=== PATIENT | female | born 1955 | race Caucasian/White ===

== ENCOUNTER 2018-03-10 21:28 | Inpatient (IN) | payer OTHER ==
[2018-03-10 21:28] VITALS: BMI 25.1
[2018-03-10 22:12] LABS: BASO % 0.4 % (0.0-2.0); EOS # 0.1 K/uL (0.0-0.7); EOS % 0.8 % (0.0-4.0); HEMOGLOBIN 12.8 g/dL (11.0-16.0); LYMPH % 28.6 % (20.0-40.0); MEAN CELL VOLUME 67.7 fL (81.0-99.0); MEAN CORPUSCULAR HEMOGLOBIN 21.7 pg (27.0-31.0); MEAN CORPUSCULAR HGB CONC 32.1 g/dL (33.0-37.0); MEAN PLATELET VOLUME 8.8 fL (7.2-11.7); MONO # 0.9 K/uL (0.0-0.8); MONO % 8.5 % (0.0-10.0); NEUT # 6.4 K/uL (1.8-7.0); NEUT % 61.7 % (50.0-75.0); NRBC % 0.1 % (0.0-2.0); RBC 5.87 Mil/uL (3.80-5.20); RED CELL DISTRIBUTION WIDTH 15.1 % (11.5-14.5); WHITE BLOOD COUNT 10.4 K/uL (4.8-10.8)
[2018-03-10] MEDS ORDERED: Morphine 4 MG/ML VIAL ONE ×2 (22:12→23:47)
[2018-03-10 22:23] LABS: ALB/GLOB RATIO 1.2 (1.0-2.1); ALBUMIN 4.3 g/dL (3.5-5.0); ALT/SGPT 70 U/L (9-52); AST/SGOT 47 U/L (14-36); BLOOD UREA NITROGEN 11 mg/dL (7-17); CALCIUM 8.6 mg/dl (8.6-10.4); GFR NON-AFRICAN AMERICAN > 60; LIPASE 118 U/L (23-300)
[2018-03-10 22:35] LABS: B-TYPE NATRIURETIC PEPTIDE 141 pg/mL (0-900)
[2018-03-10 22:36] LABS: INR 0.9; PARTIAL THROMBOPLASTIN TIME 30 SECONDS (21-34)
[2018-03-10] MEDS ORDERED: Iohexol 300 100 ML IJ ONE (22:49)
[2018-03-10 22:57] LABS: D DIMER < 200 ng/mlDDU (0-243)
[2018-03-11 00:16] LABS: SQUAMOUS EPITHIAL 4 /hpf (0-5); URINE BILIRUBIN NEGATIVE (NEGATIVE); URINE BLOOD NEGATIVE (NEGATIVE); URINE CLARITY Clear (Clear); URINE COLOR Straw (YELLOW); URINE GLUCOSE (UA) 1+ mg/dL (Normal); URINE LEUKOCYTE ESTERASE NEG Leu/uL (Negative); URINE PROTEIN 1+ mg/dL (NEGATIVE); URINE UROBILINOGEN NORMAL mg/dL (0.2-1.0)
[2018-03-11] MEDS ORDERED: Ciprofloxacin 400mg/200ml D5W 400 MG/200 ML BAG IV STA (00:19)
--- NOTE | 2018-03-11 00:22 | C.PDOC ---
History Of Present Illness 63-year-old female presents to the ED for evaluation of periumbilical abdominal pain and diarrhea which began today. Patient denies fever, chills, eating new foods, or sick contacts. Time Seen by Provider: 03/10/18 21:50 Chief Complaint (Nursing): Abdominal Pain History Per: Patient History/Exam Limitations: no limitations Onset/Duration Of Symptoms: Hrs Current Symptoms Are (Timing): Still Present Location Of Pain/Discomfort: Periumbilical Radiation Of Pain To:: None Quality Of Discomfort: "Pain" Associated Symptoms: Diarrhea. denies: Fever, Chills Last Bowel Movement: Today Additional History Per: Patient Past Medical History Reviewed: Historical Data, Nursing Documentation, Vital Signs Vital Signs: Last Vital Signs Temp 97.9 F 03/11/18 15:00 Pulse 80 03/11/18 15:00 Resp 20 03/11/18 15:00 BP 142/68 03/11/18 15:00 Pulse Ox 100 03/11/18 15:00 - Medical History PMH: Anemia, HTN, Hypercholesterolemia Denies: Chronic Kidney Disease Surgical History: No Surg Hx Denies: Pacemaker - [facility] Procedures COLONOSCOPY (03/15/05) ENDOSC POLYPECTOMY OF LG INTEST (02/14/14) ESOPHAGOGASTRODUODENOSCOPY [EGD] W/CLOSED BIOPSY (03/15/05) LAPAROSCOP LYSIS-PERITONEAL ADHES (09/02/02) OTH LAPAROSCOP LOCAL EXCIS/DESTRUCT OVARY (09/02/02) SUBTOT ABD HYSTERECTOMY (09/02/02) Family History: States: Unknown Family Hx - Social History Hx Alcohol Use: No Hx Substance Use: No - Immunization History Hx Tetanus Toxoid Vaccination: Yes Hx Influenza Vaccination: No Hx Pneumococcal Vaccination: No Review Of Systems Constitutional: Negative for: Fever, Chills Gastrointestinal: Positive for: Abdominal Pain (periumbilical ), Diarrhea Physical Exam - Physical Exam Appears: Non-toxic, Other (in moderate distress ) Skin: Normal Color, Warm, Dry Head: Atraumatic, Normacephalic Eye(s): bilateral: Normal Inspection Oral Mucosa: Moist Neck: Supple Chest: Symmetrical, No Deformity, No Tenderness Cardiovascular: Rhythm Regular, No Murmur Respiratory: Normal Breath Sounds, No Rales, No Rhonchi, No Wheezing Gastrointestinal/Abdominal: Soft, Tenderness (periumbilical ), No Guarding, No Rebound, No Other (Madrigal's sign, McBurney's point tenderness ) Extremity: Normal ROM, Capillary Refill (less than 2 seconds ) Neurological/Psych: Oriented x3, Normal Speech, Normal Cognition ED Course And Treatment - Laboratory Results Result Diagrams: 03/11/18 19:25 03/11/18 19:30 O2 Sat by Pulse Oximetry: 100 (on RA) Pulse Ox Interpretation: Normal - CT Scan/US CT A/P Other Rad Studies (CT/US): Read By Radiologist, Radiology Report Reviewed CT/US Interpretation: IMPRESSION: Findings consistent with appendicitis. No abscess. No pneumoperitoneum. Progress Note: Bloodwork, urinalysis, CT A/P , EKG ordered and reviewed. Cipro IV, Flagyl IV, Morphine IVP, and Zofran IVP given. Disposition Doctor Will See Patient In The: Hospital Counseled Patient/Family Regarding: Studies Performed, Diagnosis - Disposition Disposition: HOSPITALIZED Disposition Time: 15:00 Condition: GOOD - Clinical Impression Clinical Impression: Appendicitis - Scribe Statement The provider has reviewed the documentation as recorded by the Scribe (Génesis Avalos) Provider Attestation: All medical record entries made by the Scribe were at my direction and personally dictated by me. I have reviewed the chart and agree that the record accurately reflects my personal performance of the history, physical exam, medical decision making, and the department course for this patient. I have also personally directed, reviewed, and agree with the discharge instructions and disposition.
[2018-03-11] MEDS ORDERED: Ciprofloxacin 400mg/200ml D5W 400 MG/200 ML BAG IVPB ONE ×2 (00:28→09:32)
--- NOTE | 2018-03-11 00:28 | C.PDOC ---
Time Seen by Provider: 03/10/18 21:50 Chief Complaint (Nursing): Abdominal Pain Past Medical History Vital Signs: Last Vital Signs Temp 97.7 F 03/10/18 21:39 Pulse 60 03/10/18 21:39 Resp 18 03/10/18 21:39 BP 218/84 H 03/10/18 21:39 Pulse Ox 100 03/10/18 21:39 - Medical History PMH: Anemia, HTN, Hypercholesterolemia Denies: Chronic Kidney Disease Surgical History: Denies: Pacemaker - [facility] Procedures COLONOSCOPY (03/15/05) ENDOSC POLYPECTOMY OF LG INTEST (02/14/14) ESOPHAGOGASTRODUODENOSCOPY [EGD] W/CLOSED BIOPSY (03/15/05) LAPAROSCOP LYSIS-PERITONEAL ADHES (09/02/02) OTH LAPAROSCOP LOCAL EXCIS/DESTRUCT OVARY (09/02/02) SUBTOT ABD HYSTERECTOMY (09/02/02) Family History: States: Unknown Family Hx - Social History Hx Alcohol Use: No Hx Substance Use: No - Immunization History Hx Tetanus Toxoid Vaccination: Yes Hx Influenza Vaccination: No Hx Pneumococcal Vaccination: No ED Course And Treatment - Laboratory Results Result Diagrams: 03/10/18 22:07 03/10/18 22:07 Lab Interpretation: Normal (ua neg.) ECG: Interpreted By Me ECG Rhythm: Sinus Rhythm ECG Interpretation: Normal Rate From EC O2 Sat by Pulse Oximetry: 100 Pulse Ox Interpretation: Normal - Radiology CXR: Interpreted by Me CXR Interpretation: Yes: No Acute Disease - CT Scan/US abd/pelvis Other Rad Studies (CT/US): Interpreted By Me, Radiology Report Reviewed (+ acute AP) Reevaluation Time: 00:28 Reassessment Condition: Improved - Physician Consult Information Outcome Of Conversation: 0020: d/w PMD, jud Larios to admit. Prefers Dr. Franco or Dr. Nath for Surg Consult. 0020: d/w Surgical TobiasBenjy ayala ok to consult as above. Disposition Doctor Will See Patient In The: Hospital Counseled Patient/Family Regarding: Studies Performed, Diagnosis - Disposition Disposition: HOSPITALIZED Disposition Time: 00:30 Condition: GOOD - Clinical Impression Clinical Impression: Appendicitis
[2018-03-11] MEDS ORDERED: metroNIDAZOLE IV 500 mg/100 ml 500 MG/100 ML BAG IV SCH (00:30)
[2018-03-11] MEDS ORDERED: Lactated Ringer's 1,000 ML IV SCH (01:15)
--- NOTE | 2018-03-11 01:15 | CP.PCM.CON ---
History of Present Illness - History of Present Illness History of Present Illness: General Surgery consult note for Dr. Franco Consulted for: acute appendicitis Patient is a 63F with PMH of HTN, HLD, and DM who presents with 1 day of upper abdominal pain, nausea, and vomiting. patient states that symptoms started 03/10 morning and pain is a cramping sensation that is constant, nothing alleviates or aggravates. patient has had several episodes of nausea and vomitings yellow emesis, with no bile or blood. Patient also admits to one episode of yellowish, non-bloody diarrhea at the time of onset. Denies any dysuria or hematuria but admits urinary frequency lately, denies fevers, chills, or any other symptoms. Patient denies any sick contacts or prior episodes. Patient takes 81mg ASA a day PMH: HTN, HLD, DM PSH: ALL: PCN social: denies any smoking, ETOH, or drug history Review of Systems - Review of Systems All systems: reviewed and no additional remarkable complaints except (as per HPI ) Past Patient History - Infectious Disease Hx of Infectious Diseases: None - Past Medical History & Family History Past Medical History?: Yes Past Family History: Reviewed and not pertinent - Past Social History Smoking Status: Never Smoked Alcohol: None Drugs: Denies - CARDIAC Hx Hypercholesterolemia: Yes Hx Hypertension: Yes Hx Pacemaker: No - PULMONARY Hx Respiratory Disorders: No - NEUROLOGICAL Hx Neurological Disorder: Yes Hx Dizziness: Yes Hx Vertigo: Yes - HEENT Hx HEENT Problems: No Other/Comment: WEARS GLASSES - RENAL Hx Chronic Kidney Disease: No - ENDOCRINE/METABOLIC Hx Endocrine Disorders: Yes Hx Diabetes Mellitus Type 2: Yes - HEMATOLOGICAL/ONCOLOGICAL Hx Anemia: Yes - INTEGUMENTARY Hx Dermatological Problems: No - MUSCULOSKELETAL/RHEUMATOLOGICAL Hx Musculoskeletal Disorders: No Hx Falls: No (DENIES) - GASTROINTESTINAL Hx Gastrointestinal Disorders: No - GENITOURINARY/GYNECOLOGICAL Hx Genitourinary Disorders: No - PSYCHIATRIC Hx Substance Use: No - SURGICAL HISTORY Hx Surgeries: Yes Hx Section: Yes (2x) - ANESTHESIA Hx Anesthesia: Yes Hx Anesthesia Reactions: No Hx Malignant Hyperthermia: No Meds Allergies/Adverse Reactions: Allergies Allergy/AdvReac Type Severity Reaction Status Date / Time Penicillins Allergy Verified 12/28/15 10:33 - Medications Medications: Current Medications Ciprofloxacin (Cipro 400mg/200ml Dsw) 400 mg in 200 mls @ 133.333 mls/hr IV STAT STA PRN Reason: Protocol Stop: 03/11/18 01:48 Last Admin: 03/11/18 00:33 Dose: 133.333 mls/hr Metronidazole (Flagyl) 500 mg in 100 mls @ 100 mls/hr IV STAT PANCHITO PRN Reason: Protocol Ciprofloxacin (Cipro 400mg/200ml Dsw) 400 mg in 200 mls @ 133 mls/hr IVPB Q12H PANCHITO PRN Reason: Protocol Metronidazole (Flagyl) 500 mg in 100 mls @ 100 mls/hr IVPB Q8H PANCHITO PRN Reason: Protocol Lactated Ringer's (Lactated Ringer's) 1,000 mls @ 125 mls/hr IV .Q8H PANCHITO Ondansetron HCl (Zofran Inj) 4 mg IVP Q6H PRN PRN Reason: Nausea/Vomiting Physical Exam - Constitutional Appears: Well, Non-toxic, No Acute Distress - Head Exam Head Exam: ATRAUMATIC, NORMOCEPHALIC - Eye Exam Eye Exam: Normal appearance. absent: Conjunctival injection, Scleral icterus - ENT Exam ENT Exam: Mucous Membranes Moist, Normal Oropharynx - Respiratory Exam Respiratory Exam: NORMAL BREATHING PATTERN. absent: Accessory Muscle Use, Respiratory Distress - Cardiovascular Exam Cardiovascular Exam: RRR - GI/Abdominal Exam GI & Abdominal Exam: Soft, Tenderness (RLQ>RUQ>epigastrium). absent: Distended , Rebound Additional comments: no rebound tenderness, negative psoas sign, negative rovsing's sign - Extremities Exam Extremities exam: Positive for: pedal pulses present. Negative for: calf tenderness, pedal edema - Back Exam Back exam: absent: CVA tenderness (L), CVA tenderness (R) - Neurological Exam Neurological exam: Alert, Oriented x3 - Psychiatric Exam Psychiatric exam: Normal Affect, Normal Mood - Skin Skin Exam: Diaphoretic, Intact, Normal Color, Warm Results - Vital Signs Recent Vital Signs: Last Vital Signs Temp 97.7 F 03/10/18 21:39 Pulse 60 03/10/18 21:39 Resp 18 03/10/18 21:39 BP 218/84 H 03/10/18 21:39 Pulse Ox 100 03/11/18 00:31 - Labs Result Diagrams: 03/11/18 07:44 03/11/18 07:44 Labs: Laboratory Results - last 24 hr 03/10/18 03/10/18 03/10/18 22:07 22:07 22:07 WBC 10.4 RBC 5.87 H Hgb 12.8 Hct 39.8 MCV 67.7 L MCH 21.7 L MCHC 32.1 L RDW 15.1 H Plt Count 179 MPV 8.8 Neut % (Auto) 61.7 Lymph % (Auto) 28.6 [place] % (Auto) 8.5 Eos % (Auto) 0.8 Baso % (Auto) 0.4 Neut # (Auto) 6.4 Lymph # (Auto) 3.0 [place] # (Auto) 0.9 H Eos # (Auto) 0.1 Baso # (Auto) 0.0 PT 10.0 INR 0.9 APTT 30 D-Dimer, Quantitative < 200 Sodium 134 Potassium 3.9 Chloride 94 L Carbon Dioxide 27 Anion Gap 17 BUN 11 Creatinine 0.6 L Est GFR ( Amer) > 60 Est GFR (Non-Af Amer) > 60 Random Glucose 155 H Lactic Acid Calcium 8.6 Total Bilirubin 0.4 AST 47 H D ALT 70 H D Alkaline Phosphatase 126 D Troponin I < 0.0120 NT-Pro-B Natriuret Pep 141 Total Protein 7.8 Albumin 4.3 Globulin 3.5 Albumin/Globulin Ratio 1.2 Lipase 118 Urine Color Urine Clarity Urine pH Ur Specific [place] Urine Protein Urine Glucose (UA) Urine Ketones Urine Blood Urine Nitrate Urine Bilirubin Urine Urobilinogen Ur Leukocyte Esterase Urine WBC (Auto) Urine RBC (Auto) Ur Squamous Epith Cells 03/10/18 03/11/18 22:14 00:07 WBC RBC Hgb Hct MCV MCH MCHC RDW Plt Count MPV Neut % (Auto) Lymph % (Auto) [place] % (Auto) Eos % (Auto) Baso % (Auto) Neut # (Auto) Lymph # (Auto) [place] # (Auto) Eos # (Auto) Baso # (Auto) PT INR APTT D-Dimer, Quantitative Sodium Potassium Chloride Carbon Dioxide Anion Gap BUN Creatinine Est GFR ( Amer) Est GFR (Non-Af Amer) Random Glucose Lactic Acid 1.6 Calcium Total Bilirubin AST ALT Alkaline Phosphatase Troponin I NT-Pro-B Natriuret Pep Total Protein Albumin Globulin Albumin/Globulin Ratio Lipase Urine Color Straw Urine Clarity Clear Urine pH 7.0 Ur Specific [place] 1.033 H Urine Protein 1+ H Urine Glucose (UA) 1+ Urine Ketones Trace Urine Blood Negative Urine Nitrate Negative Urine Bilirubin Negative Urine Urobilinogen Normal Ur Leukocyte Esterase Neg Urine WBC (Auto) 8 H Urine RBC (Auto) 1 Ur Squamous Epith Cells 4 - Imaging and Cardiology CT scan - abdomen Status: Image reviewed by me, Report reviewed by me Assessment & Plan - Assessment and Plan (Free Text) Assessment: 63F with acute appendicitis Plan: OR in the AM for laparoscopic appendectomy NPO IVF IVF cipro/flagyl PRN pain and nausea medication Incentive spirometer, SCD's Discussed with Dr. Joan Burleson, PGY2
[2018-03-11] MEDS ORDERED: Morphine 4 MG/ML VIAL IVP PRN (01:18)
[2018-03-11] MEDS ORDERED: metroNIDAZOLE IV 500 mg/100 ml 500 MG/100 ML BAG IV STA (01:29)
[2018-03-11] MEDS: Lactated Ringer's 1,000 ML IV SCH ×3 (02:20→18:06)
[2018-03-11 07:57] LABS: BASO % 0.1 % (0.0-2.0); EOS % 0.3 % (0.0-4.0); HEMOGLOBIN 11.6 g/dL (11.0-16.0); LYMPH # 1.9 K/uL (1.0-4.3); LYMPH % 21.4 % (20.0-40.0); MEAN CORPUSCULAR HGB CONC 32.4 g/dL (33.0-37.0); MEAN PLATELET VOLUME 9.1 fL (7.2-11.7); MONO % 11.7 % (0.0-10.0); NEUT % 66.5 % (50.0-75.0); RBC 5.26 Mil/uL (3.80-5.20)
[2018-03-11] MEDS: metroNIDAZOLE IV 500 mg/100 ml 500 MG/100 ML BAG IVPB SCH ×2 (08:00→16:16)
[2018-03-11 08:11] LABS: BLOOD UREA NITROGEN 10 mg/dL (7-17); GFR NON-AFRICAN AMERICAN > 60
--- NOTE | 2018-03-11 08:38 | RAD ---
Date of service: 03/11/2018 HISTORY: pre-op evaluation COMPARISON: Portable chest 12/28/2015. FINDINGS: LUNGS: No active pulmonary disease. PLEURA: No significant pleural effusion identified, no pneumothorax apparent. CARDIOVASCULAR: Borderline cardiomegaly. No pulmonary vascular congestion. OSSEOUS STRUCTURES: No significant abnormalities. VISUALIZED UPPER ABDOMEN: Elevated right hemidiaphragm of indeterminate etiology. OTHER FINDINGS: None. IMPRESSION: Borderline cardiomegaly reiterated with no pulmonary vascular congestion. Elevated hemidiaphragm identified in the interval of indeterminate etiology. No acute infiltrates bilaterally.
[2018-03-11] MEDS ORDERED: Clindamycin 600mg/50ml NS 600 MG/50 ML BAG IVPB ONE (09:32)
[2018-03-11] MEDS ORDERED: Midazolam 2 MG/2 ML VIAL ONE (09:35)
[2018-03-11] MEDS ORDERED: Propofol 10 mg/ml Inj (20 ML) ONE (09:35)
[2018-03-11] MEDS ORDERED: Succinylcholine Chloride 20 mg/ml Syr (5 ml) IV ONE (10:00)
[2018-03-11] MEDS ORDERED: Rocuronium 10 mg/ml (10 ml) ONE (10:00)
[2018-03-11] MEDS ORDERED: ePHEDrine 50 mg/ml Inj ONE (10:51)
--- NOTE | 2018-03-11 11:45 | CT ---
Date of service: 03/10/2018 PROCEDURE: CT Abdomen and Pelvis with contrast HISTORY: abd pain, elev BP, ? dissection/mesenteric COMPARISON: None. TECHNIQUE: Following oral and intravenous contrast administration, a CT examination of the abdomen and pelvis performed from the domes of the diaphragms to the symphysis pubis with reformatted datasets provided not only axial but also sagittal and coronal series. Contrast dose: Omnipaque 300, 100 cc Radiation dose: Total exam DLP = 320.23 mGy-cm. This CT exam was performed using one or more of the following dose reduction techniques: Automated exposure control, adjustment of the mA and/or kV according to patient size, and/or use of iterative reconstruction technique. FINDINGS: LOWER THORAX: Cardiomegaly. Limited bilateral basilar dependent atelectasis. No pleural or pericardial effusion appreciated. LIVER: Diminished attenuation is seen throughout the liver compatible with hepatic steatosis. No intrahepatic biliary duct dilatation or mass is identified. GALLBLADDER AND BILE DUCTS: Unremarkable. PANCREAS: Unremarkable. No gross lesion or ductal dilatation. SPLEEN: Unremarkable. ADRENALS: Unremarkable. No mass. KIDNEYS AND URETERS: Unremarkable. No hydronephrosis. No solid mass. VASCULATURE: Unremarkable. No aortic aneurysm. BOWEL: Unremarkable. No obstruction. No gross mural thickening. APPENDIX: Appendix is dilated with an appendicular is identified proximally and limited periappendiceal reaction compatible with appendicitis. No CT sign of rupture at this time. No abscess. PERITONEUM: Unremarkable. No free fluid. No free air. LYMPH NODES: Unremarkable. No enlarged lymph nodes. BLADDER: Unremarkable. REPRODUCTIVE: Unremarkable. BONES: No acute fracture. OTHER FINDINGS: None. IMPRESSION: Findings compatible with appendicitis. No CT sign of rupture. Concordant preliminary report from [facility], 03/11/2018.
[2018-03-11] MEDS: Ciprofloxacin 400mg/200ml D5W 400 MG/200 ML BAG IVPB SCH (13:27)
--- NOTE | 2018-03-11 13:27 | PCM.SURG1 ---
Surgeon's Initial Post Op Note - Surgeon's Notes Surgeon: Joan Licensed Embalmer Supervisor: Fito PGY4 Type of Anesthesia: General Endo Pre-Operative Diagnosis: Appendicitis Operative Findings: Acutely inflamed appendix. Serosal tear of colon Post-Operative Diagnosis: same Operation Performed: laparoscopic appendectomy with laparotomy and repair of serosal colon tear Specimen/Specimens Removed: appendix Estimated Blood Loss: EBL {In ML}: 200 Blood Products Given: N/A Drains Used: No Drains Post-Op Condition: Good Date of Surgery/Procedure: 03/11/18 Time of Surgery/Procedure: 13:27
[2018-03-11] MEDS: HYDROmorphone 0.5 mg/0.5 ml ISec IVP PRN ×2 (13:42→14:00)
[2018-03-11] MEDS ORDERED: Lactated Ringer's 1,000 ML IV ONE (14:05)
[2018-03-11 19:28] LABS: HEMOGLOBIN 10.9 g/dL (11.0-16.0); MEAN CELL VOLUME 67.8 fL (81.0-99.0); MEAN CORPUSCULAR HEMOGLOBIN 21.9 pg (27.0-31.0); MEAN CORPUSCULAR HGB CONC 32.4 g/dL (33.0-37.0); MEAN PLATELET VOLUME 8.4 fL (7.2-11.7); RBC 4.99 Mil/uL (3.80-5.20); RED CELL DISTRIBUTION WIDTH 15.1 % (11.5-14.5); WHITE BLOOD COUNT 9.5 K/uL (4.8-10.8)
[2018-03-11 19:54] LABS: IRON 16 ug/dL (37-170)
[2018-03-11 19:57] LABS: ALB/GLOB RATIO 1.3 (1.0-2.1); ALBUMIN 3.6 g/dL (3.5-5.0); ALT/SGPT 53 U/L (9-52); AST/SGOT 28 U/L (14-36); BLOOD UREA NITROGEN 5 mg/dL (7-17); CALCIUM 7.4 mg/dl (8.6-10.4); GFR NON-AFRICAN AMERICAN > 60
[2018-03-11 20:03] LABS: % IRON SATURATION 6 (20-55); TOTAL IRON BINDING CAPACITY 282 ug/dL (250-450)
[2018-03-12] MEDS: metroNIDAZOLE IV 500 mg/100 ml 500 MG/100 ML BAG IVPB SCH (00:04)
[2018-03-12] MEDS: Ciprofloxacin 400mg/200ml D5W 400 MG/200 ML BAG IVPB SCH (00:05)
--- NOTE | 2018-03-12 00:23 | OP ---
Copied To: Benito Franco Jr., MD Attending MD: Benito Franco Jr., MD PROCEDURE DATE: 03/11/2018 PREOPERATIVE DIAGNOSIS: Appendicitis. POSTOPERATIVE DIAGNOSIS: Appendicitis. PROCEDURES CARRIED OUT: 1. Laparoscopic appendectomy. 2. Laparotomy repair of serosal tear of colon. SURGEON: Benito Franco Jr., MD [employer] PIPES ASSEMBLER: ___merry__ ANESTHESIOLOGIST: Dr. Addison Pierce. ANESTHESIA: General anesthesia. INDICATIONS: The patient is a 63-year-old woman with abdominal pain, abnormal CAT scan, fecaliths in the middle of the appendix. OPERATIVE FINDINGS: The patient's findings are consistent with appendicitis. It was not particularly inflamed. The rest of the intraoperative findings were unremarkable; however on closing the abdomen, our final look showed that there was loop of bowel adhesed to the incision in the left lower quadrant where the other puncture site was made. Because of this, we attempted to check this, but I was unable to be satisfied if there is no bowel tear or etc laparoscopically. Because of this, we made an incision in the left lower quadrant to check it. At this point, there was a 2-mm serosal tear to the colon, but there was nofull thickness tear and was just a tear in the serosal surface of the colon. After this had been done, we then checked again for hemostasis, closed the abdominal incision, both incisions under direct vision and then closed the left lower quadrant incision, which we were difficult to anticipate it. Nonetheless after this had been closed and we were satisfied with the hemostasis, we irrigated out the wound and closed the skin. Blood loss of the procedure was 200 mL primarily due to ooze from the umbilical port. The rest of the intraoperative findings were unremarkable. OPERATION CARRIED OUT: Laparoscopic appendectomy and then laparotomy via left lower quadrant incision to inspect the sigmoid colon because there were numerous adhesions, and I was concerned that there has been some tear to the colon. It was found that there was a serosal tear about 2 mm in diameter. Benito Franco Jr., MD [facility]
[2018-03-12] MEDS: Lactated Ringer's 1,000 ML IV SCH ×3 (05:34→20:12)
[2018-03-12 07:16] LABS: HEMOGLOBIN 10.4 g/dL (11.0-16.0); MEAN CELL VOLUME 66.9 fL (81.0-99.0); MEAN CORPUSCULAR HEMOGLOBIN 21.3 pg (27.0-31.0); MEAN CORPUSCULAR HGB CONC 31.8 g/dL (33.0-37.0); RBC 4.88 Mil/uL (3.80-5.20); RED CELL DISTRIBUTION WIDTH 14.9 % (11.5-14.5); WHITE BLOOD COUNT 7.3 K/uL (4.8-10.8)
--- NOTE | 2018-03-12 07:45 | CP.PCM.PN ---
Subjective - Date & Time of Evaluation Date of Evaluation: 03/12/18 Time of Evaluation: 07:36 - Subjective Subjective: Surgery: Dr. Franco Pt seen and examined. Resting comfortably in bed. Pain controlled. Tolerating CLD. No N/V. No F/C. Objective - Vital Signs/Intake and Output Vital Signs (last 24 hours): Temp Pulse Resp BP Pulse Ox 99.1 F 82 20 125/67 100 03/12/18 05:05 03/12/18 05:05 03/12/18 05:05 03/12/18 05:05 03/12/18 05:05 Intake and Output: 03/12/18 03/12/18 06:59 18:59 Intake Total 1100 Output Total 1700 Balance -600 - Medications Medications: Current Medications Bisoprolol Fumarate (Zebeta) 5 mg PO DAILY PANCHITO Ondansetron HCl (Zofran Inj) 4 mg IVP Q6H PRN PRN Reason: Nausea/Vomiting Last Admin: 03/11/18 19:30 Dose: 4 mg Tamsulosin HCl (Flomax) 0.4 mg PO DAILY PANCHITO Last Admin: 03/11/18 17:21 Dose: 0.4 mg - Labs Labs: 03/12/18 07:09 03/11/18 19:30 PT 10.0 SECONDS (9.7-12.2) 03/10/18 22:07 INR 0.9 03/10/18 22:07 APTT 30 SECONDS (21-34) 03/10/18 22:07 - Constitutional Appears: Non-toxic, No Acute Distress - Head Exam Head Exam: ATRAUMATIC, NORMOCEPHALIC - Eye Exam Eye Exam: EOMI - ENT Exam ENT Exam: Mucous Membranes Moist - Neck Exam Neck Exam: Full ROM - Respiratory Exam Respiratory Exam: NORMAL BREATHING PATTERN. absent: Accessory Muscle Use, Respiratory Distress - GI/Abdominal Exam GI & Abdominal Exam: Soft, Tenderness (srinivasan-incisional ). absent: Distended, Firm, Guarding, Rigid, Rebound - Extremities Exam Extremities Exam: absent: Calf Tenderness, Pedal Edema - Neurological Exam Neurological Exam: Alert, Awake, Oriented x3 Assessment and Plan - Assessment and Plan (Free Text) Assessment: 63F w. appendicitis, s/p lap appy w. 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
[2018-03-12 07:54] LABS: BLOOD UREA NITROGEN 4 mg/dL (7-17); CALCIUM 7.6 mg/dl (8.6-10.4); GFR NON-AFRICAN AMERICAN > 60
[2018-03-12] MEDS: Enoxaparin 40 mg Syringe SC SCH (09:38)
[2018-03-12] MEDS: Oxycodone/Acetaminophen 5/325 mg Tab PO PRN ×2 (18:09→23:36)
--- NOTE | 2018-03-13 06:20 | CP.PCM.HP ---
History of Present Illness - History of Present Illness History of Present Illness: cc: abdominal pain HPI: Pt is a 63 yo [place] female who developed diarrhea and pain over the mid and srinivasan-umbilical areas 2 days prior to admission. Pt says she had loose watery stools and she took Imodium in an attempt to find relief. The diarrhea abated, but her pain continued until it localized at the RLQ. Pt also developed increasing nausea and escalation of the intensity of the abdom pain. Unable to withstand the pain, pt went to ER for evaluation where she was diagnosed with an acute appendicitis. I was called by the ER Attending at the time, and I asked that current Surgeon be consulted as this was turning into a surgical case. Appreciate prompt Surgical service response. Present on Admission - Present on Admission History of DVT/PE: No History of Uncontrolled Diabetes: Yes Urinary Catheter: No Decubitus Ulcer Present: No Review of Systems - Review of Systems Systems not reviewed;Unavailable: Acuity of Condition, Altered Mental Status - Constitutional Constitutional: Anorexia, Chills, Headache - EENT Eyes: absent: As Per HPI, Blind Spots, Blurred Vision, Change in Vision, Decreased Night Vision, Diplopia, Discharge, Dry Eye, Exophthalmos, Floaters, Irritation, Itchy Eyes, Loss of Peripheral Vision, Pain, Photophobia, Requires Corrective Lenses, Sees Flashes, Spots in Vision, Tunnel Vision, Other Visual Disturbances, Loss of Vision, Other Ears: absent: As Per HPI, Decreased Hearing, Ear Discharge, Ear Pain, Tinnitus, Abnormal Hearing, Disequilibrium, Dizziness, Other Nose/Mouth/Throat: absent: As Per HPI, Epistaxis, Nasal Congestion, Nasal Discharge, Nasal Obstruction, Nasal Trauma, Nose Pain, Post Nasal Drip, Sinus Pain, Sinus Pressure, Bleeding Gums, Change in Voice, Dental Pain, Dry Mouth, Dysphagia, Halitosis, Hoarsness, Lip Swelling, Mouth Lesions, Mouth Pain, Odynophagia, Sore Throat, Throat Swelling, Tongue Swelling, Facial Pain, Neck Pain, Neck Mass, Other - Breasts Breasts: absent: As Per HPI, Change in Shape, Mass, Pain, Nipple Discharge, Nipple Inversion, Skin Changes, Swelling, Other - Cardiovascular Cardiovascular: absent: As Per HPI, Acrocyanosis, Chest Pain, Chest Pain at Rest , Chest Pain with Activity, Claudication, Diaphoresis, Dyspnea, Dyspnea on Exertion, Edema, Irregular Heart Rhythm, Pain Radiating to Arm/Neck/Jaw, Leg Edema, Leg Ulcers, Lightheadedness, Orthopnea, Palpitations, Paroxysmal Nocturnal Dyspnea, Pedal Edema, Radiating Pain, Rapid Heart Rate, Slow Heart Rate, Syncope, Other - Respiratory Respiratory: Cough Past Patient History - Infectious Disease Hx of Infectious Diseases: None - Past Medical History & Family History Past Medical History?: Yes Past Family History: Reviewed and not pertinent - Past Social History Smoking Status: Never Smoked Alcohol: None Drugs: Denies - CARDIAC Hx Hypercholesterolemia: Yes Hx Hypertension: Yes Hx Pacemaker: No - PULMONARY Hx Respiratory Disorders: No - NEUROLOGICAL Hx Neurological Disorder: Yes Hx Dizziness: Yes Hx Vertigo: Yes - HEENT Hx HEENT Problems: No Other/Comment: WEARS GLASSES - RENAL Hx Chronic Kidney Disease: No - ENDOCRINE/METABOLIC Hx Endocrine Disorders: Yes Hx Diabetes Mellitus Type 2: Yes - HEMATOLOGICAL/ONCOLOGICAL Hx Anemia: Yes - INTEGUMENTARY Hx Dermatological Problems: No - MUSCULOSKELETAL/RHEUMATOLOGICAL Hx Musculoskeletal Disorders: No Hx Falls: No (DENIES) - GASTROINTESTINAL Hx Gastrointestinal Disorders: No - GENITOURINARY/GYNECOLOGICAL Hx Genitourinary Disorders: No - PSYCHIATRIC Hx Substance Use: No - SURGICAL HISTORY Hx Surgeries: Yes Hx Section: Yes (2x) - ANESTHESIA Hx Anesthesia: Yes Hx Anesthesia Reactions: No Hx Malignant Hyperthermia: No Meds Home Medications: Home Medication List Medication Instructions Recorded Confirmed Type Bisacodyl [Dulcolax] 10 mg OH ONCE sup 03/13/18 Rx Sennosides A and B [Senokot Tab] 8.6 mg PO BID 30 Days #60 tab 03/13/18 Rx oxyCODONE/Acetaminophen [Percocet 1 tab PO Q4H PRN #20 tab 03/13/18 Rx 5/325 mg Tab] Allergies/Adverse Reactions: Allergies Allergy/AdvReac Type Severity Reaction Status Date / Time Penicillins Allergy Verified 12/28/15 10:33 Physical Exam - Constitutional Appears: In Acute Distress Additional comments: from abdom pain - Head Exam Head Exam: ATRAUMATIC, NORMAL INSPECTION, NORMOCEPHALIC - Eye Exam Eye Exam: Normal appearance - ENT Exam ENT Exam: Normal Exam - Neck Exam Neck exam: Positive for: Normal Inspection - Respiratory Exam Respiratory Exam: NORMAL BREATHING PATTERN - Cardiovascular Exam Cardiovascular Exam: REGULAR RHYTHM - GI/Abdominal Exam GI & Abdominal Exam: Hypoactive Bowel Sounds - Rectal Exam Rectal Exam: NORMAL INSPECTION Additional comments: no perirrectal tenderness - Exam Exam: NORMAL INSPECTION External exam: NORMAL EXTERNAL EXAM - Back Exam Back exam: NORMAL INSPECTION - Neurological Exam Neurological exam: Normal Gait - Psychiatric Exam Psychiatric exam: Depressed, Normal Affect, Normal Mood - Skin Skin Exam: Warm Results - Vital Signs Recent Vital Signs: Last Vital Signs Temp 98.7 F 03/12/18 23:00 Pulse 68 03/12/18 23:00 Resp 20 03/12/18 23:00 BP 125/65 03/12/18 23:00 Pulse Ox 96 03/12/18 23:00 - Labs Result Diagrams: 03/12/18 07:09 03/12/18 07:09 Labs: Laboratory Results - last 24 hr 03/12/18 03/12/18 03/12/18 07:09 07:09 21:11 WBC 7.3 RBC 4.88 Hgb 10.4 L Hct 32.6 L MCV 66.9 L MCH 21.3 L MCHC 31.8 L RDW 14.9 H Plt Count 145 MPV 9.0 Sodium 131 L Potassium 3.6 Chloride 96 L Carbon Dioxide 24 Anion Gap 14 BUN 4 L Creatinine 0.6 L Est GFR ( Amer) > 60 Est GFR (Non-Af Amer) > 60 POC Glucose (mg/dL) 263 H Random Glucose 198 H Calcium 7.6 L Assessment & Plan (1) Appendicitis Assessment and Plan: for surgery. Service consulted Status: Acute (2) Diabetes Assessment and Plan: will hold off on starting insulin which uses of home for now until patient is post-op. Status: Chronic (3) Hyponatremia Assessment and Plan: probably Iatrogenic. will Monitor and is sodium decreases again, will switch IV fluids to normal saline. Status: Acute
--- NOTE | 2018-03-13 09:04 | RAD ---
Date of service: 03/12/2018 HISTORY: constipation/obstruction COMPARISON: CT abdomen pelvis 03/10/2018 FINDINGS: BOWEL: No bowel obstruction. Right colon stool retention. Interval faint hyperdensities the right lower quadrant just above the iliac crest compatible with interval surgical intervention on the appendix in this patient with a history of acute appendicitis. Skin sutures project transversely over upper pelvis. There are subcutaneous a Morpheus radiolucencies compatible with surgical intervention as well Groin vascular calcifications present BONES: Normal. OTHER FINDINGS: None. IMPRESSION: Interval postsurgical changes. No bowel obstruction. Moderate right colon stool retention.
[2018-03-13] MEDS: Oxycodone/Acetaminophen 5/325 mg Tab PO PRN ×3 (09:41→22:13)
[2018-03-13] MEDS: Enoxaparin 40 mg Syringe SC SCH (09:41)
[2018-03-13] MEDS: Insulin Detemir 100 units/ml Vial (Levemir) SC SCH (09:42)
[2018-03-13] MEDS ORDERED: Pneumococcal 23-Valent Vaccine IM ONE ×3 (10:00→14:00)
--- NOTE | 2018-03-13 15:46 | CP.PCM.PN ---
Subjective - Date & Time of Evaluation Date of Evaluation: 03/13/18 Time of Evaluation: 15:44 - Subjective Subjective: Surgery: Dr. Franco Pt seen and examined. Resting comfortably in bed. Pain controlled. Tolerating diet. No N/V. +Flatus. No BM. Ambulating without difficulty. Objective - Vital Signs/Intake and Output Vital Signs (last 24 hours): Temp Pulse Resp BP Pulse Ox 98.9 F 77 18 138/65 94 L 03/13/18 07:10 03/13/18 14:33 03/13/18 07:10 03/13/18 07:10 03/13/18 14:33 Intake and Output: 03/13/18 03/13/18 06:59 18:59 Intake Total 200 500 Output Total 550 Balance -350 500 - Medications Medications: Current Medications Bisoprolol Fumarate (Zebeta) 5 mg PO DAILY [facility] Last Admin: 03/13/18 11:53 Dose: 5 mg Enoxaparin Sodium (Lovenox) 40 mg SC DAILY [facility] Last Admin: 03/13/18 09:41 Dose: 40 mg Insulin Detemir (Levemir) 20 unit SC PCB [facility] Last Admin: 03/13/18 09:42 Dose: 20 u Ondansetron HCl (Zofran Inj) 4 mg IVP Q6H PRN PRN Reason: Nausea/Vomiting Last Admin: 03/11/18 19:30 Dose: 4 mg Oxycodone/Acetaminophen (Percocet 5/325 Mg Tab) 1 tab PO Q4H PRN PRN Reason: Pain, moderate (4-7) Stop: 03/15/18 07:35 Last Admin: 03/13/18 09:41 Dose: 1 tab Sennosides (Senokot Tab) 8.6 mg PO DAILY [facility] Last Admin: 03/13/18 09:41 Dose: 8.6 mg - Labs Labs: 03/12/18 07:09 03/12/18 07:09 PT 10.0 SECONDS (9.7-12.2) 03/10/18 22:07 INR 0.9 03/10/18 22:07 APTT 30 SECONDS (21-34) 03/10/18 22:07 - Constitutional Appears: Non-toxic, No Acute Distress - Head Exam Head Exam: ATRAUMATIC, NORMOCEPHALIC - Eye Exam Eye Exam: EOMI - ENT Exam ENT Exam: Mucous Membranes Moist - Neck Exam Neck Exam: Full ROM - Respiratory Exam Respiratory Exam: NORMAL BREATHING PATTERN. absent: Accessory Muscle Use, Respiratory Distress - GI/Abdominal Exam GI & Abdominal Exam: Soft. absent: Distended, Firm, Guarding, Rigid, Tenderness , Rebound Additional comments: Incisions C/D/I - Extremities Exam Extremities Exam: absent: Calf Tenderness, Pedal Edema - Neurological Exam Neurological Exam: Alert, Awake, Oriented x3 - Psychiatric Exam Psychiatric exam: Normal Affect, Normal Mood Assessment and Plan - Assessment and Plan (Free Text) Assessment: 63F w. appendicitis, s/p lap appy w. laparotomy and repair of serosal tear POD#2 -Tolerating regular diet -Pain controlled -Clear for D/C from surgical standpoint -F/U with Dr. Franco in 2 weeks -No heavy lifting > 15-20lbs for 4 weeks -d/w attending Fito PGY4
--- NOTE | 2018-03-13 16:50 | CARD ---
APPROVED REPORT Date of service: 03/10/2018 EKG Measurement Heart [id number] <Conclusion> Sinus bradycardia Lead motion artificat Probably normal except for rate.
[2018-03-14] MEDS: Oxycodone/Acetaminophen 5/325 mg Tab PO PRN ×2 (04:27→10:06)
[2018-03-14 08:12] VITALS: RESP 18; TEMP 98.3; O2SAT 96
[2018-03-14] MEDS: Insulin Detemir 100 units/ml Vial (Levemir) SC SCH (08:13)
[2018-03-14 10:06] VITALS: BP 196/63; PULSE 68
[2018-03-14] MEDS: Enoxaparin 40 mg Syringe SC SCH (10:07)
== END 2018-03-14 11:45 | disposition home or self-care (01) | DRG 330 ==
LOC: C.ER 21:28 → C.9E 03-11 00:27 → C.6T 03-11 00:27
PROVIDERS: ADMIT Family Medicine; ATTEND Family Medicine
PROC: 0DQE0ZZ Repair Large Intestine, Open Approach (ICD-10-PCS; 2018-03-11)
PROC: 0DTJ4ZZ Resection of Appendix, Percutaneous Endoscopic Approach (ICD-10-PCS; principal; 2018-03-11 09:30)
DX: K35.80 Unspecified acute appendicitis (principal); E87.1 Hypo-osmolality and hyponatremia; K38.1 Appendicular concretions; K66.0 Peritoneal adhesions (postprocedural) (postinfection); I10 Essential (primary) hypertension; E11.9 Type 2 diabetes mellitus without complications; E78.5 Hyperlipidemia, unspecified; E78.00 Pure hypercholesterolemia, unspecified

== ENCOUNTER 2018-04-04 07:27 | Day surgery (SDC) | payer OTHER ==
[2018-04-04] MEDS ORDERED: Lactated Ringer's 1,000 ML IV ONE (09:22)
[2018-04-04] MEDS ORDERED: Propofol 10 mg/ml Inj (20 ML) ONE ×2 (09:23)
[2018-04-04 10:09] VITALS: TEMP 97
[2018-04-04 10:22] VITALS: O2SAT 100
[2018-04-04 10:56] VITALS: BP 146/59; PULSE 47; RESP 18
== END 2018-04-04 10:53 | disposition home or self-care (01) ==
LOC: C.ENDO 07:27
PROVIDERS: ATTEND Internal Medicine Gastroenterology
DX: Z12.11 Encounter for screening for malignant neoplasm of colon (principal); D12.6 Benign neoplasm of colon, unspecified; K64.8 Other hemorrhoids
CPT/HCPCS: 45380; 82948; 88305; J2704; J7120